=== PATIENT | female | born 1990 | race Two or more races ===

== ENCOUNTER 2023-02-27 10:19 | Emergency (ER) | payer OTHER ==
[~2023-02-27] VITALS: Ht 152.4 cm; Wt 47.6 kg
== END 2023-02-27 12:17 | disposition home or self-care (01) ==
LOC: ER 10:19
DX: S81.012A Laceration without foreign body, left knee, initial encounter (principal); W19.XXXA Unspecified fall, initial encounter; Y93.9 Activity, unspecified; Y92.018 Other place in single-family (private) house as the place of occurrence of the external cause; Y99.9 Unspecified external cause status; Z91.013 Allergy to seafood